=== PATIENT | male | born 1990 | race Caucasian/White ===

== ENCOUNTER 2017-06-19 20:34 | Emergency (ER) | payer SELFPAY ==
[~2017-06-19] VITALS: Ht 172.7 cm; Wt 104.5 kg
[2017-06-19] MEDS ORDERED: IBUPROFEN 600 MG TABLET PO ONE (21:00)
[2017-06-19] MEDS ORDERED: BUPIVACAINE HCL/PF 0.25% 10 ML VIAL INJ ONE (21:30)
[2017-06-19 21:49] VITALS: BP 154/94
== END 2017-06-19 22:06 | disposition home or self-care (01) ==
LOC: EMS 20:36
DX: S52.025A Nondisplaced fracture of olecranon process without intraarticular extension of left ulna, initial encounter for closed fracture (principal); S01.81XA Laceration without foreign body of other part of head, initial encounter; Z87.891 Personal history of nicotine dependence; Y08.89XA Assault by other specified means, initial encounter; Y93.89 Activity, other specified; Y92.89 Other specified places as the place of occurrence of the external cause; Y99.8 Other external cause status
CPT/HCPCS: 12013; 29105; 70450; 73080; 99284; J3490

== ENCOUNTER 2022-08-17 16:20 | Emergency (ER) | payer MEDICAID ==
[~2022-08-17] VITALS: Ht 167.6 cm; Wt 135.4 kg
[2022-08-17] MEDS ORDERED: IBUPROFEN 600 MG TABLET PO ONE (17:45)
[2022-08-17] MEDS ORDERED: LIDOCAINE 5% TRANSDERMAL PATCH TD ONE (18:45)
[2022-08-17] MEDS ORDERED: LIDO700A15 TP (20:19)
[2022-08-17] MEDS ORDERED: IBUP-1492 PO (20:19)
[2022-08-17 20:44] VITALS: BP 160/90
== END 2022-08-17 20:50 | disposition home or self-care (01) ==
LOC: EMS 16:30
DX: S20.211A Contusion of right front wall of thorax, initial encounter (principal); F12.90 Cannabis use, unspecified, uncomplicated; Z87.891 Personal history of nicotine dependence; X58.XXXA Exposure to other specified factors, initial encounter; Y93.89 Activity, other specified; Y92.89 Other specified places as the place of occurrence of the external cause; Y99.8 Other external cause status
CPT/HCPCS: 99283; 71046; G0238